=== PATIENT | female | born 1990 | race African-American/Black ===

== ENCOUNTER 2017-08-04 08:33 | Emergency (ER) | payer SELFPAY ==
[2017-08-04 08:40] VITALS: BP 142/81
[2017-08-04] MEDS ORDERED: FLUT9.9S NS (09:17)
--- NOTE | 2017-08-04 09:17 | PHYS DOC ---
Past History Past Medical History: Asthma Past Surgical History: No Surgical History Alcohol Use: None Drug Use: None Adult General Chief Complaint Chief Complaint: EARACHE/EAR PAIN [facility] HPI Patient is a 27 year old F who presents with cough, nasal congestion and ear pain. Analia states that her symptoms began with nasal congestion about 1-2 weeks ago. She has her symptoms progressed to include cough and left-sided ear pain. She denies fevers sweats or chills. She denies shortness of breath. She does have a history of asthma has not been using her inhalers regularly. She does have an Advair inhaler. She has no other associated symptoms. She has no other exacerbating or relieving factors. Review of Systems Review of Systems Constitutional: Denies fever or chills [] Eyes: Denies change in visual acuity, redness, or eye pain [] HENT: Negative except history of present illness Respiratory: Negative except history of present illness Cardiovascular: No additional information not addressed in HPI [] GI: Denies abdominal pain, nausea, vomiting, bloody stools or diarrhea [] : Denies dysuria or hematuria [] Musculoskeletal: Denies back pain or joint pain [] Integument: Denies rash or skin lesions [] Neurologic: Denies headache, focal weakness or sensory changes [] Endocrine: Denies polyuria or polydipsia [] All other systems were reviewed and found to be within normal limits, except as documented in this note. Family History Family History No pertinent family history reported Current Medications Current Medications Current medications were reviewed Allergies Allergies Allergies Coded Allergies Type Severity Reaction Last Updated Verified Latex, Natural Rubber Allergy Unknown 08/04/17 Yes Physical Exam Physical Exam Constitutional: Well developed, well nourished, no acute distress, non-toxic appearance. [] HENT: Normocephalic, atraumatic, bilateral external ears normal, oropharynx moist, no oral exudates moderate nasal turbinate edema with mild to moderate mucus, left worse than right Eyes: EOMI, conjunctiva normal, no discharge. [] Neck: Normal range of motion, no tenderness, supple, no stridor. [] Cardiovascular:Heart rate regular rhythm, Lungs & Thorax: Bilateral breath sounds clear to auscultation [] Abdomen: Bowel sounds normal, soft, no tenderness, no masses, no pulsatile masses. [] Skin: Warm, dry, no erythema, no rash. [] Back: No tenderness, no CVA tenderness. [] Extremities: No tenderness, no cyanosis, no clubbing, ROM intact, no edema. [] Neurologic: Alert and oriented X 3, normal motor function, normal sensory function, no focal deficits noted. [] Psychologic: Affect normal, judgement normal, mood normal. [] Current Patient Data Vital Signs Vital Signs Date Time Temp Pulse Resp B/P (MAP) Pulse Ox O2 Delivery O2 Flow Rate FiO2 08/04/17 08:40 97.9 89 16 97 Room Air Radiology/Procedures Radiology/Procedures Imaging was declined Course & Med Decision Making Course & Med Decision Making Pertinent Labs and Imaging studies reviewed. (See chart for details) [] Dragon Disclaimer Dragon Disclaimer This electronic medical record was generated, in whole or in part, using a voice recognition dictation system. Departure Departure: Impression: Primary Impression: Upper respiratory infection Disposition: HOME, SELF-CARE Condition: STABLE Referrals: ROBIN CAMACHO APRN (PCP) Patient Instructions: Upper Respiratory Infection, Adult Additional Instructions: Analia was seen in the emergency department for cough and nasal congestion. No emergency medical condition was found on history or physical exam. She was advised to use nasal saline rinses regularly. She was also advised to use nasal steroid spray. She is advised follow-up with her primary care doctor in the next 3-5 days for further management. Scripts Fluticasone Propionate (Flonase Allergy Relief) 9.9 Ml [place].susp 1 SPRAYS NS BID for 7 Days, BOTTLE Prov: JAJA ESPINOSA MD 08/04/17 Problem Qualifiers Primary Impression: Upper respiratory infection URI type: acute nasopharyngitis (common cold) Qualified Codes: J00 - Acute nasopharyngitis [common cold] JAJA ESPINOSA MD Aug 04, 2017 09:17
== END 2017-08-04 09:33 | disposition home or self-care (01) ==
LOC: ER 08:33
DX: J06.9 Acute upper respiratory infection, unspecified (principal); J45.909 Unspecified asthma, uncomplicated; Z91.040 Latex allergy status
CPT/HCPCS: 99283

== ENCOUNTER 2020-10-29 20:10 | Emergency (ER) | payer MEDICAID ==
[~2020-10-29] VITALS: Ht 167.6 cm; Wt 154.5 kg
[~2020-10-29 20:10] MED LIST: FLUT9.9S NS
--- NOTE | 2020-10-29 20:14 | PHYS DOC ---
Past History Past Medical History: Asthma Past Surgical History: No Surgical History Alcohol Use: None Drug Use: None General Adult HPI: HPI: ".. I was at gas station.... I was stepping over the gas hose.. and neftali tripped and fell.. that was about 6:30.. but I got to hurting more... so I came in..." Patient is a 30 year old female who presents with above hx and complaints fall with Lt arm and Rt hand injury. Patient distal neurovascular and her fingers are equal to fingers and the other hand. Does have some pain on loading of fifth finger. Does have range of motion but some discomfort. Patient has pain in left arm mid forearm. Does have an area of contusion and edema at this site. Distal neurovascular is intact. Patient denies other injury in the fall. Patient follows with [facility] for care. Review of Systems: Review of Systems: Constitutional: Denies fever or chills Eyes: Denies change in visual acuity HENT: Denies nasal congestion or sore throat Respiratory: Denies cough or shortness of breath Cardiovascular: Denies chest pain or edema GI: Denies abdominal pain, nausea, vomiting, bloody stools or diarrhea : Denies dysuria Musculoskeletal: Complaints of right hand pain and left forearm pain Integument: Denies rash Neurologic: Denies headache, focal weakness or sensory changes Endocrine: Denies polyuria or polydipsia Lymphatic: Denies swollen glands Psychiatric: Denies depression or anxiety Family History: Family History: Noncontributory to presentation Current Medications: Current Meds: See nursing for home meds Allergies: Allergies: Allergies Coded Allergies Type Severity Reaction Last Updated Verified Latex, Natural Rubber Allergy Unknown 08/04/17 Yes Physical Exam: PE: Constitutional: Moderate acute distress, non-toxic appearance. [] HENT: Normocephalic, atraumatic, bilateral external ears normal, oropharynx moist, no oral exudates, nose normal. [] Eyes: PERRLA, EOMI, conjunctiva normal, no discharge. [] Neck: Normal range of motion, no tenderness, supple, no stridor. [] Cardiovascular:Heart rate regular rhythm, no murmur [] Lungs & Thorax: Bilateral breath sounds equal apex auscultation [] Abdomen: Bowel sounds normal, soft, no tenderness, no masses, no pulsatile masses. Obese Skin: Warm, dry, no erythema, no rash. [] Back: No tenderness, no CVA tenderness. [] Extremities: No tenderness, no cyanosis, no clubbing, ROM intact, no edema. Set findings in right hand and left forearm as per HPI Neurologic: Alert and oriented X 3, normal motor function, normal sensory function, no focal deficits noted. [] Psychologic: Affect anxious , judgement normal, mood normal. [] EKG: EKG: [] Radiology/Procedures: Radiology/Procedures: [][address] [address] IMAGING REPORT Signed PATIENT: FUAD MYERS ACCOUNT: [id number] : 1990 LOCATION: ER AGE: 30 SEX: F EXAM STATUS: REG ER ORD. PHYSICIAN: DENISSE ARCHER MD REASON: fall PROCEDURE: HAND LEFT 3V Exam: Right forearm 2 views. Right hand 3 views INDICATION: Fall TECHNIQUE: Frontal and lateral views of the right forearm. Frontal, lateral and oblique views of the left hand Comparisons: None FINDINGS: Left hand: Bone mineralization is normal. No acute or healed fractures. Soft tissues are unremarkable. Joint spaces are well-maintained. Left forearm: Bone mineralization is normal. No acute or healed fractures. Soft tissues are unremarkable. Joint spaces are well-maintained. IMPRESSION: No acute osseous abnormality of the left hand or left forearm. Electronically signed by: Primo Ochoa MD (10/29/2020 9:38 PM) [facility] DICTATED AND SIGNED BY: PRIMO OCHOA MD DATE: 10/29/202134 CC: DENISSE ARCHER MD; MARÍA ELENA GOODWIN ~MTH0 0 Heart Score: Risk Factors: Risk Factors: DM, Current or recent (<one month) smoker, HTN, HLP, family history of CAD, obesity. Risk Scores: Score 0 - 3: 2.5% MACE over next 6 weeks - Discharge Home Score 4 - 6: 20.3% MACE over next 6 weeks - Admit for Clinical Observation Score 7 - 10: 72.7% MACE over next 6 weeks - Early Invasive Strategies Course & Med Decision Making: Course & Med Decision Making Pertinent Labs and Imaging studies reviewed. (See chart for details) Patient use ice packs as needed. Elevate. Take Tylenol and ibuprofen for pain. May take a Vicoprofen up to 4 times a day for marked pain. For continued pain clemente-ray in 2 weeks. Reexam with primary care. Return if any concerns. Impression: 1. Trip and fall 2. Contusions 3. Sprain strain [] Dragon Disclaimer: Dragon Disclaimer: This electronic medical record was generated, in whole or in part, using a voice recognition dictation system. Departure Departure: Referrals: MARÍA ELENA GOODWIN (PCP) Scripts Hydrocodone/Ibuprofen (HYDROCODONE-IBUPROFEN 7.5-200 ) 1 Each Tablet 1 TAB PO PRN Q6HRS PRN for PAIN, #30 TAB 0 Refills Prov: DENISSE ARCHER MD 10/29/20 Dragon Disclaimer This chart was dictated in whole or in part using Voice Recognition software in a busy, high-work load, and often noisy Emergency Department environment. It may contain unintended and wholly unrecognized errors or omissions. DENISSE ARCHER MD Oct 29, 2020 20:14
[2020-10-29 20:33] VITALS: BP 151/95
--- NOTE | 2020-10-29 21:41 | RAD ---
Exam: Right forearm 2 views. Right hand 3 views INDICATION: Fall TECHNIQUE: Frontal and lateral views of the right forearm. Frontal, lateral and oblique views of the left hand Comparisons: None FINDINGS: Left hand: Bone mineralization is normal. No acute or healed fractures. Soft tissues are unremarkable. Joint spa jeremy are well-maintained. Left forearm: Bone mineralization is normal. No acute or healed fractures. Soft tissues are unremarkable. Joint spa jeremy are well-maintained. IMPRESSION: No acute osseous abnormality of the left hand or left forearm. Electronically signed by: Primo Youngblood MD (10/29/2020 9:38 PM) [facility]
[2020-10-29] MEDS ORDERED: HYDR-1179 PO (21:46)
== END 2020-10-29 22:11 | disposition home or self-care (01) ==
LOC: ER 20:10
DX: S63.8X1A Sprain of other part of right wrist and hand, initial encounter (principal); S50.12XA Contusion of left forearm, initial encounter; R60.0 Localized edema; J45.909 Unspecified asthma, uncomplicated; Z91.040 Latex allergy status; W01.0XXA Fall on same level from slipping, tripping and stumbling without subsequent striking against object, initial encounter; Y93.89 Activity, other specified; Y92.89 Other specified places as the place of occurrence of the external cause; Y99.8 Other external cause status
CPT/HCPCS: 73090; 73130; 81025; 99284

== ENCOUNTER 2021-01-09 22:36 | Inpatient (IN) | payer MEDICAID ==
[~2021-01-09] VITALS: Ht 167.6 cm; Wt 152.0 kg
[~2021-01-09 22:36] MED LIST changes: +HYDR-1179 PO
[2021-01-09 23:50] LABS: BILIRUBIN,URINE NEG (NEG); CLARITY,URINE CLEAR; COLOR,URINE STRAW; GLUCOSE,URINE 500 mg/dL (NEG)
[2021-01-09 23:51] LABS: NITRITE,URINE NEG (NEG); UROBILINOGEN,URINE 0.2 mg/dL (0.2 mg/dL)
[2021-01-09 23:52] LABS: AMORPHOUS SEDIMENT,UR PRESENT /HPF; BACTERIA,URINE FEW /HPF (0-FEW); SQUAMOUS EPITHELIAL CELL,UR FEW /LPF; WBC,URINE 0 /HPF (0-4)
[2021-01-10] MEDS ORDERED: IV RINGERS SOLUTION,LACTATED 1,000 ML IV ONE ×3 (01:15→02:15)
[2021-01-10 01:58] LABS: CALCIUM 10.2 mg/dL (8.5-10.1); CREATININE 1.1 mg/dL (0.6-1.0); GFR 70.6; POTASSIUM 4.9 mmol/L (3.5-5.1)
[2021-01-10 02:31] LABS: BASO # 0.1 x10^3/uL (0.0-0.2); BASO % 1 % (0-3); EOS # 0.3 x10^3/uL (0.0-0.7); EOS % 4 % (0-3); HEMATOCRIT 43.6 % (36.0-47.0); HEMOGLOBIN 14.5 g/dL (12.0-15.5); LYMPH # 3.5 x10^3/uL (1.0-4.8); LYMPH % 36 % (24-48); MEAN CORPUSCULAR HEMOGLOBIN 28 pg (25-35); MEAN CORPUSCULAR HGB CONC 33 g/dL (31-37); MEAN CORPUSCULAR VOLUME 86 fL (79-100); MONO % 10 % (0-9); NEUT # 4.8 x10^3uL (1.8-7.7); NEUT % 50 % (31-73); PLATELET COUNT 240 x10^3/uL (140-400); RED CELL DISTRIBUTION WIDTH 12.9 % (11.5-14.5); WHITE BLOOD COUNT 9.7 x10^3/uL (4.0-11.0)
--- NOTE | 2021-01-10 02:42 | PHYS DOC ---
Past History Past Medical History: Asthma, Other Additional Past Medical Histor: alleriges, obesity, PRE-DIABETIC Past Surgical History: Tonsillectomy, Other Additional Past Surgical Histo: adenoids, ear tubes Alcohol Use: Rarely Drug Use: None Adult General Chief Complaint Chief Complaint: URINARY FREQUENCY HPI HPI Patient is a 30-year-old female with a past medical history significant for obesity and prediabetes who presents with a chief complaint of urinary frequency. States has been going on approximately a couple of weeks, and denies any dysuria, hematuria, vaginal bleeding or history of STIs. States she has been very thirsty as well. States that she drinks lots and lots of water daily and urinates frequently. States she did have a diagnosis of prediabetes a while back but has never had a full diagnosis of diabetes. States it does run in her family. Denies any recent travel, traumas, fevers, chest pain, shortness of breath, abdominal pain, dysuria, hematuria or blood in the stool. Denies any alcohol, drug use. Denies any recent surgeries. Review of Systems Review of Systems Review of systems otherwise unremarkable except noted in HPI Current Medications Current Medications Current Medications Medications (Trade) Dose Ordered Sig/Johan Start Time Stop Time Status Last Admin Dose Admin Insulin Human Regular 100 unit/ Sodium Chloride 101 ml @ 0 mls/hr CONT PRN PRN 01/10/21 02:45 UNV Lactated Ringer's 1,000 ml @ 1,000 mls/hr 1X ONCE 01/10/21 02:15 01/10/21 03:14 01/10/21 02:10 1,000 MLS/HR Allergies Allergies Allergies Coded Allergies Type Severity Reaction Last Updated Verified Latex, Natural Rubber Allergy Unknown 10/29/20 Yes walnut Allergy Unknown 10/29/20 Yes Physical Exam Physical Exam Constitutional: Well developed, well nourished, no acute distress, non-toxic appearance. [] HENT: Normocephalic, atraumatic, bilateral external ears normal, oropharynx dry, no oral exudates, nose normal. [] Eyes: conjunctiva normal, no discharge. [] Neck: Normal range of motion, no tenderness, supple, no stridor. [] Cardiovascular:Heart rate regular rhythm, no murmur [] Lungs & Thorax: Bilateral breath sounds clear to auscultation [] Abdomen: soft, no tenderness, no masses, no pulsatile masses. [] Skin: Warm, dry, no erythema, no rash. [] Extremities: No tenderness, no cyanosis, no clubbing, ROM intact, no edema. [] Neurologic: Alert and oriented X 3, normal motor function, normal sensory function, no focal deficits noted. [] Psychologic: Affect normal, judgement normal, mood normal. [] Current Patient Data Vital Signs Vital Signs Date Time Temp Pulse Resp B/P (MAP) Pulse Ox O2 Delivery O2 Flow Rate FiO2 01/10/21 02:17 70 18 142/80 (100) 95 Room Air 01/09/21 23:13 98.3 Lab Results Laboratory Tests Test 01/09/21 23:10 01/09/21 23:14 01/10/21 01:25 Urine Collection Type Unknown Urine Color Straw Urine Clarity Clear Urine pH 5.5 Urine Specific [place] 1.010 Urine Protein Neg (NEG-TRACE) Urine Glucose (UA) 500 mg/dL (NEG) Urine Ketones (Stick) >=160 mg/dL (NEG) Urine Blood Trace (NEG) Urine Nitrite Neg (NEG) Urine Bilirubin Neg (NEG) Urine Urobilinogen Dipstick 0.2 mg/dL (0.2 mg/dL) Urine Leukocyte Esterase Neg (NEG) Urine RBC 1-2 /HPF (0-2) Urine WBC 0 /HPF (0-4) Urine Squamous Epithelial Cells Few /LPF Urine Transitional Epithelial Cells Occ /LPF Urine Renal Epithelial Cells Occ /LPF Urine Amorphous Sediment Present /HPF Urine Bacteria Few /HPF (0-FEW) POC Urine HCG, Qualitative hcg negative (Negative) White Blood Count 9.7 x10^3/uL (4.0-11.0) Red Blood Count 5.10 x10^6/uL (3.50-5.40) Hemoglobin 14.5 g/dL (12.0-15.5) Hematocrit 43.6 % (36.0-47.0) Mean Corpuscular Volume 86 fL (79-100) Mean Corpuscular Hemoglobin 28 pg (25-35) Mean Corpuscular Hemoglobin Concent 33 g/dL (31-37) Red Cell Distribution Width 12.9 % (11.5-14.5) Platelet Count 240 x10^3/uL (140-400) Neutrophils (%) (Auto) 50 % (31-73) Lymphocytes (%) (Auto) 36 % (24-48) Monocytes (%) (Auto) 10 % (0-9) H Eosinophils (%) (Auto) 4 % (0-3) H Basophils (%) (Auto) 1 % (0-3) Neutrophils # (Auto) 4.8 x10^3uL (1.8-7.7) Lymphocytes # (Auto) 3.5 x10^3/uL (1.0-4.8) Monocytes # (Auto) 1.0 x10^3/uL (0.0-1.1) Eosinophils # (Auto) 0.3 x10^3/uL (0.0-0.7) Basophils # (Auto) 0.1 x10^3/uL (0.0-0.2) POC Venous pH 7.35 (7.32-7.42) POC Venous pCO2 33 mmHg (41-51) L POC Venous pO2 51 mmHg (20-40) H Venous Blood HCO3 19 mmol/L (24-28) L POC Venous O2 Saturation (Quintin) 84 % POC FiO2 21 Sodium Level 135 mmol/L (136-145) L Potassium Level 4.9 mmol/L (3.5-5.1) Chloride Level 97 mmol/L (98-107) L Carbon Dioxide Level 21 mmol/L (21-32) Anion Gap 17 (6-14) H Blood Urea Nitrogen 26 mg/dL (7-20) H Creatinine 1.1 mg/dL (0.6-1.0) H Estimated GFR (Cockcroft-Gault) 70.6 Glucose Level 641 mg/dL (70-99) *H Calcium Level 10.2 mg/dL (8.5-10.1) H EKG EKG [] Radiology/Procedures Radiology/Procedures [] Heart Score C/O Chest Pain: No Risk Factors: Risk Factors: DM, Current or recent (<one month) smoker, HTN, HLP, family history of CAD, obesity. Risk Scores: Risk Factors: DM, Current or recent (<one month) smoker, HTN, HLP, family history of CAD, obesity. Course & Med Decision Making Course & Med Decision Making Patient is a 30-year-old female who presents with polydipsia and polyuria for c ouple of weeks Vital signs notable for hypertension and tachycardia. POC blood sugar greater than 600. Urinalysis notable for ketonuria. Blood gas notable for pH of 7.35 and a bicarb of 19. Physical exam noted above. Patient started on IV fluid resuscitation. Started on insulin drip. Laboratory analysis notable for anion gap of 17. Discussed all findings with patient and recommend admission to the hospital for continued evaluation and treatment of her early diabetic ketoacidosis. Patient grateful, verbalized understanding and agreed with plan of admission. Critical care time 30 minutes. Dragon Disclaimer Dragon Disclaimer This electronic medical record was generated, in whole or in part, using a voice recognition dictation system. Departure Departure: Impression: Primary Impression: DKA (diabetic ketoacidoses) Disposition: ADMITTED INPATIENT Admitting Physician: Kervin Albright Condition: IMPROVED Referrals: MARÍA ELENA GOODWIN (PCP) MARIBELL CERVANTES MD January 10, 2021 02:42
[2021-01-10] MEDS ORDERED: INSULIN REGULAR VIAL 100 UNIT in IV NORMAL SALINE 100ML 100 ML IV PRN ×2 (02:45→05:15)
[2021-01-10 03:30] VITALS: BP 141/93
--- NOTE | 2021-01-10 03:30 | NUR ---
The patient, FUAD MYERS, 30 y/o, F admitted by ARAM LÓPEZ MD, was given written information regarding hospital policies, unit procedures and contact persons. Valuables were checked and logged. Call light in place. Will continue to monitor.
[2021-01-10] MEDS ORDERED: IV DEXTROSE 5 %-0.45 % NACL 1,000 ML IV SCH (05:15)
[2021-01-10 05:29] LABS: ALBUMIN 3.1 g/dL (3.4-5.0); ALBUMIN/GLOBULIN RATIO 0.8 (1.0-1.7); CALCIUM 9.2 mg/dL (8.5-10.1); GFR 78.8; TOTAL BILIRUBIN 0.5 mg/dL (0.2-1.0); TOTAL PROTEIN 7.2 g/dL (6.4-8.2)
[2021-01-10] MEDS: IV NORMAL SALINE 1,000ML 1,000 ML IV SCH ×2 (06:24→07:52)
[2021-01-10] MEDS ORDERED: FLUT1DIS3 IH (06:31)
[2021-01-10] MEDS ORDERED: ALBU2.5V8 INH (06:31)
[2021-01-10] MEDS ORDERED: LORA10TA68 PO (06:31)
[2021-01-10] MEDS ORDERED: FLUT100D2 IH (06:31)
[2021-01-10 09:27] LABS: CALCIUM 8.7 mg/dL (8.5-10.1); CREATININE 0.8 mg/dL (0.6-1.0); GFR 101.9; POTASSIUM 3.8 mmol/L (3.5-5.1)
[2021-01-10 09:29] LABS: BASO # 0.1 x10^3/uL (0.0-0.2); BASO % 2 % (0-3); EOS # 0.3 x10^3/uL (0.0-0.7); EOS % 4 % (0-3); HEMATOCRIT 38.3 % (36.0-47.0); HEMOGLOBIN 13.1 g/dL (12.0-15.5); LYMPH # 3.9 x10^3/uL (1.0-4.8); LYMPH % 45 % (24-48); MEAN CORPUSCULAR HEMOGLOBIN 28 pg (25-35); MEAN CORPUSCULAR HGB CONC 34 g/dL (31-37); MEAN CORPUSCULAR VOLUME 83 fL (79-100); MONO # 0.8 x10^3/uL (0.0-1.1); MONO % 9 % (0-9); NEUT # 3.6 x10^3uL (1.8-7.7); NEUT % 41 % (31-73); PLATELET COUNT 205 x10^3/uL (140-400); RED BLOOD COUNT 4.61 x10^6/uL (3.50-5.40); WHITE BLOOD COUNT 8.7 x10^3/uL (4.0-11.0)
[2021-01-10 09:41] LABS: BASO # 0.1 x10^3/uL (0.0-0.2); BASO % 1 % (0-3); EOS # 0.3 x10^3/uL (0.0-0.7); EOS % 3 % (0-3); HEMATOCRIT 41.6 % (36.0-47.0); HEMOGLOBIN 13.7 g/dL (12.0-15.5); LYMPH # 3.1 x10^3/uL (1.0-4.8); LYMPH % 36 % (24-48); MEAN CORPUSCULAR HEMOGLOBIN 28 pg (25-35); MEAN CORPUSCULAR HGB CONC 33 g/dL (31-37); MEAN CORPUSCULAR VOLUME 85 fL (79-100); MONO # 0.7 x10^3/uL (0.0-1.1); MONO % 8 % (0-9); NEUT # 4.4 x10^3uL (1.8-7.7); NEUT % 52 % (31-73); PLATELET COUNT 202 x10^3/uL (140-400); RED BLOOD COUNT 4.91 x10^6/uL (3.50-5.40); RED CELL DISTRIBUTION WIDTH 13.2 % (11.5-14.5); WHITE BLOOD COUNT 8.6 x10^3/uL (4.0-11.0)
--- NOTE | 2021-01-10 11:18 | HP ---
ADMIT DATE: 01/10/2021 ATTENDING PHYSICIAN: Dr. Albright. CHIEF COMPLAINT: Polyuria and polydipsia. HISTORY OF PRESENT ILLNESS: The patient is a 30-year-old female who is morbidly obese. She weighs 375 pounds. She has had increasing urinary frequency with polyuria and polydipsia. In the ED, a blood sugar was over 600. She is acidotic with an anion gap of 27. She was supposedly diagnosed with borderline diabetes, but this has become full blown. She is admitted then with a new onset of diabetes and diabetic ketoacidosis. PAST MEDICAL HISTORY: Significant for tonsillectomy. She is not on any medication. She has morbid obesity. She is not on any prescription medication. ALLERGIES: SHE HAS ALLERGIES TO LATEX, RUBBER AND WALNUTS, EXACT REACTION IS UNCLEAR. SOCIAL HISTORY: She is a nonsmoker, nondrinker. 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 She has 2 sons, ages 4 and 8 respectively. FAMILY HISTORY: Mom is alive at age 52 in good health. Father is alive at age 51. MEDICATIONS: None. REVIEW OF SYSTEMS: Significant for polyuria and polydipsia. No fevers, chills. She denied any chest pain, palpitation, COVID exposure, shortness of breath. All other systems reviewed and turned to be negative. PHYSICAL EXAMINATION: GENERAL: When I saw her, this is a pleasant young female. INITIAL VITAL SIGNS: Showed a blood pressure of 142/80, pulse is 70 and regular. She is afebrile. Oxygen saturation 96% on room air, weight 170 kg, which approximately equals 375 pounds. HEENT: Head is without trauma. Pupils are reactive. Sclerae nonicteric. Oropharynx clear. NECK: Supple, no bruits identified. LUNGS: Clear to auscultation. CARDIOVASCULAR: Regular heart tones. No gallops. ABDOMEN: Obese, protuberant. No organomegaly. Normoactive bowel sounds. EXTREMITIES: Show no cyanosis. NEUROLOGIC: Finding focally intact. SKIN: Warm and dry. LABORATORY STUDIES: Admission blood sugar was over 600, repeated was 424. Electrolytes: Sodium 138 mEq, potassium 4.0 mEq per liter. Creatinine 1.0 mg/dL. Hemoglobin A1c is pending. Urinalysis had glucose in the urine. Hemoglobin 14.5 g/dL, white count 9700. Acetone levels positive. ASSESSMENT: 1. A 30-year-old female with diabetic ketoacidosis. 2. De sumaya diagnosis of diabetes. She has not been on treatment before. 3. Morbid obesity. PLAN: 1. Admit to the inpatient unit. 2. Insulin drip per glucose stabilizer protocol. 3. Followup chemistries. 4. We had a long discussion. She asked about treatment. I told her that for now clinically, it is management of diabetes with insulin. For the long-term care, I highly recommend gastric bypass surgery and referral to a bariatric surgeon. MEAGAN/LOLY/KUNAL DR: Oneal TID: [id number] CC: AMAYA LEE
[2021-01-10 11:20] VITALS: BP 119/78
[2021-01-10] MEDS ORDERED: ACETAMINOPHEN 325 MG TABLET PO ONE (11:47)
[2021-01-10] MEDS ORDERED: ACETAMINOPHEN 325 MG TABLET PO PRN (12:00)
[2021-01-10 15:51] VITALS: BP 120/77
[2021-01-10] MEDS: INSULIN LISPRO 300 UNITS/3 ML VIAL. SQ SCH ×2 (17:00→17:17)
--- NOTE | 2021-01-10 18:02 | NUR ---
pt is able to verbalize understanding of poc. PT is a new DM and went over s/s of hypo and hyperglycemia. PT hopes to go home on pills. PT was on ICU gtt this am and was transitioned off around lunch. PT does not have any Sliding scale insulin for transition and 20 u TID was ordered and lantus. BGrashaan SPORTS MARKETING COORDINATOR
[2021-01-10 19:17] VITALS: BP 114/73
[2021-01-10] MEDS ORDERED: INSULIN GLARGINE SYRINGE. SQ SCH (21:00)
[2021-01-10 23:03] VITALS: BP 108/66
[2021-01-11 02:09] LABS: HEMOGLOBIN A1C 11.3 % (4.8-5.6)
[2021-01-11 05:33] VITALS: BP 138/84
--- NOTE | 2021-01-11 05:55 | NUR ---
Pt watching TV in bed at change of shift. Pt A&Ox4, very pleasant with cares and assessment. Pt with hx of sleep apnea with CPAP here, placed on 2L NC during sleep. Pt given Diabetic Handout Education and was able to perform giving herself Insulin twice correctly with staff guidance. Pt hopeful to DC home today.
[2021-01-11] MEDS ORDERED: INSULIN LISPRO 300 UNITS/3 ML VIAL. SQ SCH ×2 (08:15→12:00)
[2021-01-11] MEDS ORDERED: MAGNESIUM CITRATE 296 ML SOLUTION. PO ONE (08:15)
[2021-01-11 10:43] VITALS: BP 131/86
[2021-01-11 15:13] VITALS: BP 102/68
[2021-01-11] MEDS: INSULIN LISPRO 300 UNITS/3 ML VIAL. SQ SCH (16:58)
--- NOTE | 2021-01-11 16:59 | NUR ---
NURSING NOTE PT BLOOD SUGAR DOWN TO 182 AT DINNER, SPOKE WITH DR LÓPEZ, ORDER TO DECREASE HUMALOG FROM 40UNITS TO 30 UNITS WELL THE LANTUS AT HS TO 30 UNITS. NAHED MAN.
[2021-01-11 19:10] VITALS: BP 131/86
[2021-01-11] MEDS ORDERED: INSULIN GLARGINE SYRINGE. SQ SCH ×4 (21:00)
[2021-01-11 22:40] VITALS: BP 137/83
--- NOTE | 2021-01-12 00:43 | PN ---
DATE: 01/11/2021 ATTENDING PHYSICIAN: Dr. Albright. SUBJECTIVE: Feels better. Wants to go home. Sugars are still high over 400. She is asymptomatic. Her acidosis is corrected. She is eating well. OBJECTIVE FINDINGS: VITAL SIGNS: Blood pressure today is 138/84. She is afebrile. Room air sats 99%. HEENT: Head is without trauma. Pupils are reactive. Sclerae nonicteric. Oropharynx is clear. NECK: Supple. No bruits. LUNGS: Clear. CARDIOVASCULAR: Regular heart tones. ABDOMEN: Soft. EXTREMITIES: Without edema. SKIN: Warm and dry. Repeat Accu-Cheks this morning it was 427, repeat was 440 mg/dL. ASSESSMENT: 1. A 30-year-old female with new onset diabetes. 2. Diabetic ketoacidosis. 3. Insulin resistant. 4. Morbid obesity. PLAN: 1. Increase schedule insulin to 40 units subcutaneously 3 times a day before each meal. 2. Increase Lantus to 40 units at bedtime. 3. Followup glucose. 4. Tentative discharge postpone until tomorrow. MEAGAN/EDUAR DR: MEAGAN/darron TID: [id number] CC: AMAYA LEE
[2021-01-12 05:50] VITALS: BP 119/68
[2021-01-12] MEDS: INSULIN LISPRO 300 UNITS/3 ML VIAL. SQ SCH (07:59)
[2021-01-12] MEDS ORDERED: INSU100I13 SQ (09:23)
[2021-01-12] MEDS ORDERED: INSU100I17 SQ (09:25)
--- NOTE | 2021-01-12 11:10 | NUR ---
Discharged pt to home, extensive diabetic education completed with patient, all discharge prescriptions reviewed with patient. Pt has appt with PCP tomorrow for further teaching. All questions answered. Pt a/ox4 vitals signs stable.
--- NOTE | 2021-01-12 12:23 | DS ---
DATE OF DISCHARGE: 01/12/2021 ATTENDING PHYSICIAN: Dr. Albright. FINAL DISCHARGE DIAGNOSES: 1. New-onset diabetes. 2. Diabetic ketoacidosis. 3. Dehydration, improved. 4. Morbid obesity. 5. Insulin resistance. HISTORY AND PHYSICAL: The patient is a 30-year-old female who weighs 380 pounds. She is a borderline diabetic. She presented with weakness, abdominal pain, blood sugar was over 600 and evidence of diabetic ketoacidosis with increased anion gap. PHYSICAL EXAMINATION: Please see the dictated note. PERTINENT LABORATORY AND X-RAY STUDIES: Admission hemoglobin was 14.5 g/dL with a white count of 9700. Creatinine on admission was 0.8 mg percent. Electrolytes within normal range. Subsequent sugars were drawn. Her hemoglobin A1c was 11.3. Drug screen was positive for acetone. Urinalysis showed large amount of ketones and sugars. Subsequent chemistries showed an improvement in her blood sugars down to the mid 100s. COURSE IN HOSPITAL: The patient was admitted. She was started on IV hydration initially with an insulin drip and then to q.i.d. scheduled regimen of regular Lantus. Diabetic education was entertained and we increased her dosages. By the third hospital day, she was feeling much better clinically. We had a long discussion regarding gastric bypass surgery. I explained to her that Kristen Glez's office will refer her to [facility] to pursue this goal. I wrote scripts for NovoPen 35 units regular before each meal and 35 units of Lantus at bedtime. In addition lancets and a script for glucometer was given to the patient. She was discharged in stable condition with explicit drug and followup care. I suggest a followup visit with Kristen Glez in the next 10 days. The patient was then discharged from our hospital in stable condition with explicit drug and followup care. TOTAL DISCHARGE TIME SPENT: [address]: Oneal TID: [id number] CC: AMAYA LEE
== END 2021-01-12 10:30 | disposition home or self-care (01) | DRG 638 ==
LOC: ER 22:36 → 1 SOUTH 01-10 02:37
PROVIDERS: ADMIT Hospitalist; ATTEND Hospitalist
DX: E11.10 Type 2 diabetes mellitus with ketoacidosis without coma (principal); Z68.43 Body mass index [BMI] 50.0-59.9, adult; E44.1 Mild protein-calorie malnutrition; E66.01 Morbid (severe) obesity due to excess calories; E86.0 Dehydration; I10 Essential (primary) hypertension; E88.81 Metabolic syndrome and other insulin resistance; J45.909 Unspecified asthma, uncomplicated; Z91.040 Latex allergy status; Z91.018 Allergy to other foods; Z82.49 Family history of ischemic heart disease and other diseases of the circulatory system
CPT/HCPCS: 36415; 80048; 80053; 81001; 81025; 82010; 82803; 82947; 83036; 83735; 84100; 85025; 96361; 96365; 99291; J1815; J7120; J7030